=== PATIENT | female | born 1955 | race Hispanic/Latino ===

== ENCOUNTER 2025-07-20 08:45 | Outpatient (CLI) | payer MEDICARE, OTHER | END 2025-07-20 08:46 | disposition home or self-care (01) | LOC: BICMAMMO 08:45 | PROVIDERS: ATTEND Family Medicine | DX: Z78.0 Asymptomatic menopausal state (principal); M85.851 Other specified disorders of bone density and structure, right thigh; M85.852 Other specified disorders of bone density and structure, left thigh | CPT/HCPCS: 77080 ==

== ENCOUNTER 2025-08-18 13:30 | Outpatient (CLI) | payer MEDICARE, OTHER | END 2025-08-18 13:31 | disposition home or self-care (01) | LOC: BICMAMMO 13:30 | PROVIDERS: ATTEND Family Medicine | DX: Z12.31 Encounter for screening mammogram for malignant neoplasm of breast (principal); Z80.3 Family history of malignant neoplasm of breast | CPT/HCPCS: 77063; 77067 ==